=== PATIENT | male | born 1950 | race Caucasian/White ===

== ENCOUNTER 2017-11-18 06:51 | Observation (INO) | payer MEDICARE, MEDICAID ==
[~2017-11-18] VITALS: Ht 188 cm; Wt 104.3 kg
[~2017-11-18 06:51] MED LIST: LISI10TA5 PO; SIMV10TA6 PO
[2017-11-18] MEDS ORDERED: LACTATED RINGERS 1,000 ML IV SCH (08:15)
[2017-11-18] MEDS ORDERED: ASPI-1159 PO (09:04)
[2017-11-18] MEDS ORDERED: ATOR20TA65 PO (09:04)
[2017-11-18] MEDS ORDERED: LISI-604 PO (09:04)
[2017-11-18] MEDS ORDERED: METO25TA6 PO (09:04)
[2017-11-18] MEDS ORDERED: CITA20TA11 PO (09:04)
[2017-11-18] MEDS ORDERED: LORA10TA7 PO (09:05)
[2017-11-18] MEDS ORDERED: ROPIVACAINE HCL 10MG/ML 20 ML VIAL EPI ONE (14:02)
[2017-11-18] MEDS ORDERED: EPINEPHRINE 1:1000 1 MG/ML AMP ONE (14:15)
[2017-11-18] MEDS ORDERED: FENTANYL CITRATE/PF 50MCG/ML 2ML VIAL ONE (14:58)
[2017-11-18] MEDS ORDERED: MIDAZOLAM HCL 2 MG/2 ML VIAL ONE (14:58)
[2017-11-18] MEDS ORDERED: PROPOFOL 200MG/20ML VIAL IV ONE (14:58)
[2017-11-18] MEDS ORDERED: MORPHINE SULFATE/PF 1MG/ML 10ML AMP ONE (17:31)
[2017-11-18] MEDS ORDERED: BUPIVACAINE HCL/PF 0.25% (2.5MG/ML) 10ML ONE (17:31)
[2017-11-18] MEDS ORDERED: MORPHINE SULFATE 4 MG/ML CPJ (NOT FOR IM USE) IV PRN (18:00)
[2017-11-18] MEDS ORDERED: ACETAMINOPHEN 325MG TABLET PO PRN (18:00)
[2017-11-18] MEDS ORDERED: ONDANSETRON HCL 4MG/2ML VIAL IV PRN ×2 (18:00→18:15)
[2017-11-18] MEDS ORDERED: ZOLPIDEM TARTRATE 5MG TABLET PO PRN (18:00)
[2017-11-18] MEDS ORDERED: HYDROCODONE/ACETAMINOPHEN 10/325MG TABLET PO PRN (18:00)
[2017-11-18] MEDS ORDERED: HYDROMORPHONE HCL/PF 2MG/ML CPJ IV PRN (18:15)
[2017-11-18 20:00] VITALS: BP 136/70
[2017-11-18 23:00] VITALS: BP 128/68
[2017-11-19] VITALS: BP 117/63
[2017-11-19] MEDS: HYDROCODONE/ACETAMINOPHEN 10/325MG TABLET PO PRN ×2 (03:46→12:27)
[2017-11-19 04:00] VITALS: BP 116/61
[2017-11-19] MEDS: MORPHINE SULFATE 4 MG/ML CPJ (NOT FOR IM USE) IV PRN ×2 (05:34→09:59)
[2017-11-19 08:00] VITALS: BP 112/59
[2017-11-19 12:00] VITALS: BP 112/58
[2017-11-19 14:54] VITALS: BP 112/59
== END 2017-11-19 16:05 | disposition home or self-care (01) ==
LOC: OR 06:51 → INTOOBSV 19:35 → 6EST 19:35
PROVIDERS: ADMIT Orthopaedic Surgery; ATTEND Orthopaedic Surgery
DX: M75.101 Unspecified rotator cuff tear or rupture of right shoulder, not specified as traumatic (principal); M19.011 Primary osteoarthritis, right shoulder; M94.211 Chondromalacia, right shoulder; M75.41 Impingement syndrome of right shoulder; E78.5 Hyperlipidemia, unspecified; G89.29 Other chronic pain; I10 Essential (primary) hypertension; S43.491A Other sprain of right shoulder joint, initial encounter; X58.XXXA Exposure to other specified factors, initial encounter; Y93.89 Activity, other specified; Y92.89 Other specified places as the place of occurrence of the external cause; Y99.8 Other external cause status
CPT/HCPCS: 29823; 29824; 29826; 29827; 88304; 88311; 96374; 96376; 97166; C1713; G0378; G8987; G8988; G8989; J0171; J2250; J2270; J2795; J3010; J3490; J7120; A4565; J2274; J2704